=== PATIENT | female | born 1945 | race Caucasian/White ===

== ENCOUNTER 2023-11-20 12:52 | Outpatient (AMB) | payer MEDICARE, SELFPAY ==
--- NOTE | 2023-11-20 12:53 | MHC.OFFVIS ---
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 Nitriles Lab Technician Required: No Allergies Penicillins Allergy (Intermediate, Verified 11/20/23 12:59) Fever Medication List - Last Reconciled 11/20/23 by Ivanna Chavis MD atorvastatin 10 mg PO DAILY doxazosin 4 mg PO DAILY levothyroxine 112 mcg PO DAILY lisinopril 10 mg PO BID mecobalamin (vitamin B12) mcg PO verapamil ER 200 mg PO BEDTIME HPI HPI Comments History of Present Illness Details 78y/o female comes for evaluation of cognitive impairment. She is accompanied by her who helps with history.About 1 year ago her noticed that she was repeating herself often, misplaces things, forgets where her things are, short term memory issues , trouble with time and date , trouble remembering her cousins etc. She has slowly worsening since then. she used to bake a lot but now has issues remembering the recipes.she drives locally and is OK> she was an ex smoker - has COPD now. SHe denies any head injury Her mother was diagnosed with dementia in her 80s. [facility] Medical History (Updated 11/20/23 @ 13:33 by Ivanna Chavis MD) Dementia Arthritis Hypothyroidism Hyperlipidemia COPD (chronic obstructive pulmonary disease) HTN (hypertension) Systolic ejection murmur Surgical History History of carpal tunnel surgery History of hysterectomy History of surgical removal of ganglion cyst History of appendectomy Family History Father No problems noted. Mother No problems noted. Social History Household Members: Spouse Housing: House Alcohol intake: former Patient Tobacco Use Status: Former Tobacco user Years Smoked: 50 years Review of Systems Neuro Reports confusion Psych Reports confusion Physical Exam Vital Signs: Last Vital Signs Pulse 78 01/02/24 12:57 Resp 17 11/20/23 12:57 BP 162/92 H 11/20/23 12:57 Pulse Ox 98 11/20/23 12:57 Oxygen Delivery Method Room Air 11/20/23 12:57 BMI result Body Mass Index 27.4 Const General: cooperative, healthy appearing, comfortable and confusion Nutritional Appearance: average body habitus Orientation/consciousness: confusion Eyes Pupils: Equal, round and reactive pupils present Neuro General: moves all extremities, no focal motor deficits and confusion Cranial nerves: Yes Facial sensation intact/muscles of mastication intact, Yes Equal, round and reactive pupils present, Yes Bilaterally intact EOM present, Yes Nystagmus not present, Yes Normal facial strength present and Yes Midline tongue present Cognition (Neuro): abnormal cognition Gait exam (Neuro): Antalgic gait present Motor exam (neuro): 5/5 motor strength present throughout and Normal motor muscle tone present throughout Deep tendon reflexes (DTR's): Right triceps reflex intensity grade: 1+, Left triceps reflex intensity grade: 1+, Rt Biceps (C5, C6): 1+, Left biceps reflex intensity grade: 1+, Right brachioradialis reflex intensity grade: 1+, Left brachioradialis reflex intensity grade: 1+, Right patellar reflex intensity grade: 2+ and Left patellar reflex intensity grade: 2+ Coordination: [id number] test normal Orientation What is the (year) (season) (date) (day) (month)?: season, date, day and month Where are we (state) (county) (town or city) (hospital) (floor)?: state, county, town or city, hospital/clinic and floor Registration Name of 3 unrelated objects clearly and slowly, then ask patient to repeat all 3 of them. (1st repeat determines score. Make sure they can repeat all three): object 1, object 2 and object 3 Attention & Calculation (CHOOSE ONE) Spell WORLD backwards (DLROW): 2 letters Recall Ask patient to repeat the 3 items from question #3.: object 1 Language Show patient a wristwatch & ask what it is. Repeat for pencil.: watch and pencil Ask the patient to 'take a piece of paper with their right hand' 'fold paper in half' 'place paper on floor': take paper in right hand, fold paper in half and place paper on floor Print the sentence 'CLOSE YOUR EYES' on a piece. If patient actually closes eyes then score.: followed written direction Give patient a blank piece of paper & ask to write a sentence. Score if it contains a noun & verb.: sentence contains subject and verb Score Score: 22 Assessment & Plan Assessment & Plan (1) Dementia: Comment: Alzheimers vs mixed Code(s): - Unspecified dementia, unspecified severity, without behavioral disturbance, psychotic disturbance, mood disturbance, and anxiety Plan I will evaluate her with MRI brain( wants it done at [facility] ) and check her Vit B 12 TSH CBC cMP ESR Homocysteine to r/o reversible causes I will trial her on memantine 10 mg qd and then bid Orders: Orders TSH reflex Free T4 Today - Unspecified dementia, unspecified severity, without behavioral disturbance, psychotic disturbance, mood disturbance, and anxiety Erythrocyte Sedimentation Rate Today - Unspecified dementia, unspecified severity, without behavioral disturbance, psychotic disturbance, mood disturbance, and anxiety Comprehensive Met. Panel Today - Unspecified dementia, unspecified severity, without behavioral disturbance, psychotic disturbance, mood disturbance, and anxiety MR brain wo con w neuroquant Today - Unspecified dementia, unspecified severity, without behavioral disturbance, psychotic disturbance, mood disturbance, and anxiety Vitamin B12 and Folate Today - Unspecified dementia, unspecified severity, without behavioral disturbance, psychotic disturbance, mood disturbance, and anxiety Vitamin D 25-OH (D2 and D3) Today - Unspecified dementia, unspecified severity, without behavioral disturbance, psychotic disturbance, mood disturbance, and anxiety Complete Blood Count Auto Diff Today - Unspecified dementia, unspecified severity, without behavioral disturbance, psychotic disturbance, mood disturbance, and anxiety Homocysteine Today - Unspecified dementia, unspecified severity, without behavioral disturbance, psychotic disturbance, mood disturbance, and anxiety Medications: New memantine 1 tab qd for 7 days and then 1 tab bid 10 mg PO BID 60 tabs 6RF Coding Level of Care Code New Pt Level 4 (19636) Diagnoses Dementia
[2023-11-20 12:57] VITALS: BP 162/92; PULSE 78; RESP 17; O2SAT 98; BMI 27.4
== END 2023-11-20 13:46 | disposition home or self-care (01) ==
PROVIDERS: Absent Provider Psychiatry & Neurology Neurology; PCP Internal Medicine; Visit Provider Psychiatry & Neurology Neurology
DX: F03.90 Unspecified dementia, unspecified severity, without behavioral disturbance, psychotic disturbance, mood disturbance, and anxiety (principal)
CPT/HCPCS: 99204

== ENCOUNTER → 2023-11-20 12:52 | Outpatient (BNVA) | payer MEDICARE, SELFPAY | PROVIDERS: Absent Provider Psychiatry & Neurology Neurology; PCP Internal Medicine; Visit Provider Psychiatry & Neurology Neurology | DX: F03.90 Unspecified dementia, unspecified severity, without behavioral disturbance, psychotic disturbance, mood disturbance, and anxiety (principal) | CPT/HCPCS: 99202 ==

== ENCOUNTER 2024-04-03 15:37 | Outpatient (AMB) | payer MEDICARE, SELFPAY ==
--- NOTE | 2024-04-03 15:39 | MHC.OFFVIS ---
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 Allergies Penicillins Allergy (Intermediate, Verified 04/03/24 15:44) Fever Medication List - Last Reconciled 04/03/24 by Ivanna Chavis MD atorvastatin 10 mg PO DAILY donepezil 1/2 tab qd for 4 weeks then 1 tab qd orally daily; doxazosin 4 mg PO DAILY levothyroxine 112 mcg PO DAILY lisinopril 10 mg PO BID mecobalamin (vitamin B12) mcg PO memantine 10 mg PO BID verapamil ER 200 mg PO BEDTIME HPI Comments Details: 78y/o female comes for follow up of dementia.Her has noticed mild worsening since her last visit. She is accompanied by her who helps with history.About 1 year ago her noticed that she was repeating herself often, misplaces things, forgets where her things are, short term memory issues , trouble with time and date , trouble remembering her cousins etc. She has slowly worsening since then. she used to bake a lot but now has issues remembering the recipes.she drives locally and is OK> she was an ex smoker - has COPD now. SHe denies any head injury Her mother was diagnosed with dementia in her 80s. [facility] Medical History Dementia Arthritis Hypothyroidism Hyperlipidemia COPD (chronic obstructive pulmonary disease) HTN (hypertension) Systolic ejection murmur Surgical History History of carpal tunnel surgery History of hysterectomy History of surgical removal of ganglion cyst History of appendectomy Family History Father No problems noted. Mother No problems noted. Social History Household Members: Spouse Housing: House Alcohol intake: former Patient Tobacco Use Status: Former Tobacco user Years Smoked: 50 years Review of Systems Neuro Reports confusion Psych Reports confusion Physical Exam Vital Signs: Last Vital Signs Pulse 70 04/03/24 15:45 BP 142/80 H 04/03/24 15:45 Pulse Ox 97 04/03/24 15:45 Oxygen Delivery Method Room Air 04/03/24 15:45 BMI result Body Mass Index 23.5 Const General: cooperative, healthy appearing, comfortable and confusion Nutritional Appearance: average body habitus Orientation/consciousness: confusion Eyes Pupils: Equal, round and reactive pupils present Neuro General: moves all extremities, no focal motor deficits and confusion Cranial nerves: Yes Facial sensation intact/muscles of mastication intact, Yes Equal, round and reactive pupils present, Yes Bilaterally intact EOM present, Yes Nystagmus not present, Yes Normal facial strength present and Yes Midline tongue present Cognition (Neuro): abnormal cognition Gait exam (Neuro): Antalgic gait present Motor exam (neuro): 5/5 motor strength present throughout and Normal motor muscle tone present throughout Coordination: [id number] test normal Assessment & Plan Assessment & Plan (1) Dementia: Comment: Alzheimers vs mixed Code(s): F03.90 - Unspecified dementia, unspecified severity, without behavioral disturbance, psychotic disturbance, mood disturbance, and anxiety Category: Medical Plan MRI Brain -age related atrophy and mild white matter changes check her Vit B 12 TSH CBC cMP ESR Homocysteine to r/o reversible causes- was ordered last visit but was not done Continue memantine 10 mg bid start donepezil 5mg qd for 4 weeks then 1 tab qd Medications: New donepezil 1/2 tab qd for 4 weeks then 1 tab qd orally daily; 30 tabs 6RF Coding Level of Care Code Est Pt Level 4 (94599) Diagnoses Dementia F03.90
[2024-04-03 15:45] VITALS: BP 142/80; PULSE 70; O2SAT 97; BMI 23.5
== END 2024-04-03 16:05 | disposition home or self-care (01) ==
PROVIDERS: PCP Internal Medicine; Visit Provider Psychiatry & Neurology Neurology
DX: F03.90 Unspecified dementia, unspecified severity, without behavioral disturbance, psychotic disturbance, mood disturbance, and anxiety (principal)
CPT/HCPCS: 99214

== ENCOUNTER 2024-04-03 16:05 | Outpatient (REF) | payer MEDICARE, SELFPAY ==
[2024-04-03 19:53] LABS: MANUAL DIFF FLAG NO
[2024-04-03 19:57] LABS: Basophils Absolute Auto 0.1 X10*3/uL (0.0-0.2); Eosinophils Absolute Auto 0.1 X10*3/uL (0.0-0.4); Eosinophils Percent Auto 1.1 % (0-4); Hematocrit 32.8 % (37.0-47.0); Hemoglobin 10.7 g/dl (12.0-16.0); Lymphocytes Absolute Auto 1.4 X10*3/uL (1.2-4.9); Mean Corpuscular HGB Conc 32.6 g/dl (31.0-35.0); Mean Corpuscular Hemoglobin 29.6 pg (27.0-33.0); Mean Corpuscular Volume 90.9 fL (80.0-98.0); Mean Platelet Volume 12.7 fL (9.4-12.3); Monocytes Absolute Auto 0.5 X10*3/uL (0.1-1.2); Monocytes Percent Auto 9.6 % (2-11); Neutrophils Absolute Auto 3.2 x10*3/uL (2.0-8.3); Neutrophils Percent Auto 61.3 % (45-73); Platelet Count 329 X10*3/uL (160-400); Red Blood Count 3.61 X10*6/uL (4.20-5.50); Red Cell Distribution Width 12.8 % (11.0-16.0); White Blood Count 5.2 X10*3/uL (4.8-10.8)
[2024-04-03 20:38] LABS: Alanine Aminotransferase 7 U/L (0-31); Albumin Level 3.8 g/dL (3.5-5.0); Alkaline Phosphatase 76 U/L (39-117); Anion Gap 13 (12-20); Aspartate Amino Transferase 15 U/L (5-31); Bilirubin Total 0.4 mg/dL (0.0-1.0); Blood Urea Nitrogen 22 mg/dL (9-16); Calcium 9.4 mg/dL (8.4-10.2); Carbon Dioxide 28 mmol/L (22-29); Chloride 105 mmol/L (96-108); Estimated Glomerular Filt Rate 47; Glucose Random 80 mg/dL (60-115); Potassium 4.6 mmol/L (3.3-5.1); Sodium 141 mmol/L (135-145); Total Protein 7.1 g/dL (6.5-8.0)
[2024-04-03 20:47] LABS: Erythrocyte Sedimentation Rate 33 MM/HR (0-20)
[2024-04-03 20:52] LABS: TSH reflex Free T4 0.07 uIU/mL (0.32-4.0)
[2024-04-03 21:04] LABS: Folate 9.3 ng/mL (> or = 4.0); Vitamin B12 > 2000 pg/mL (200-900)
[2024-04-03 21:26] LABS: Free T4 (Free Thyroxine) 1.74 ng/dL (0.71-1.85)
[2024-04-10 15:52] LABS: Vitamin D 25-OH, D2 <4 ng/mL; Vitamin D 25-OH, D3 29 ng/mL; Vitamin D 25-OH, Total 29 ng/mL (30-100)
== END 2024-04-03 16:06 | disposition home or self-care (01) ==
LOC: HO.HKASLDS 16:05
PROVIDERS: Visit Provider Psychiatry & Neurology Neurology
DX: F03.90 Unspecified dementia, unspecified severity, without behavioral disturbance, psychotic disturbance, mood disturbance, and anxiety (principal); Z79.899 Other long term (current) drug therapy
CPT/HCPCS: 36415; 80053; 82306; 82607; 82746; 84439; 84443; 85025; 85652; 99212

== ENCOUNTER 2024-11-04 11:03 | Outpatient (AMB) | payer MEDICARE, SELFPAY ==
[2024-11-04 11:11] VITALS: BP 120/60; PULSE 69; O2SAT 97; BMI 26.9
--- NOTE | 2024-11-04 11:11 | A.OFFVIS_ITS ---
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 Her has noticed mild worsening since her last visit. She is accompanied by her who helps with history. About 1 year ago her noticed that she was repeating herself often, misplaces things, forgets where her things are, short term memory issues, trouble with time and date, trouble remembering date of births of family members etc. She has slowly declined since She used to bake a lot but now has issues remembering the recipes. She no longer drives. She was an ex smoker, has COPD now. She denies any head injury and falls. Her mother was diagnosed with dementia in her 80s. Moods is labile, diet is good, denies constipation, or hallucinations. Lives in [place], home has stairs, does laundry and children visit and help with chores as needed. Discussed Elderly community services, dinners out once a week, Bingo night and social engagement. [facility] Medical History Dementia Arthritis Hypothyroidism Hyperlipidemia COPD (chronic obstructive pulmonary disease) HTN (hypertension) Systolic ejection murmur Surgical History History of carpal tunnel surgery History of hysterectomy History of surgical removal of ganglion cyst History of appendectomy Family History Father No problems noted. Mother No problems noted. Social History Household Members: Spouse Housing: House Alcohol intake: former Patient Tobacco Use Status: Former Tobacco user Years Smoked: 50 years Review of Systems Const All systems reviewed & are unremarkable except as noted in HPI and below Neuro Reports confusion Psych Reports confusion Physical Exam Vital Signs: Last Vital Signs Pulse 69 11/04/24 11:11 BP 120/60 11/04/24 11:11 Pulse Ox 97 11/04/24 11:11 Oxygen Delivery Method Room Air 11/04/24 11:11 BMI result Body Mass Index 26.9 Const General: cooperative, healthy appearing, comfortable and confusion Nutritional Appearance: average body habitus Orientation/consciousness: confusion Eyes Pupils: Equal, round and reactive pupils present Neuro General: moves all extremities, no focal motor deficits and confusion Cranial nerves: Yes Facial sensation intact/muscles of mastication intact, Yes Equal, round and reactive pupils present, Yes Bilaterally intact EOM present, Yes Nystagmus not present, Yes Normal facial strength present and Yes Midline tongue present Cognition (Neuro): abnormal cognition Gait exam (Neuro): Antalgic gait present Motor exam (neuro): 5/5 motor strength present throughout and Normal motor muscle tone present throughout Coordination: [id number] test normal Orientation Where are we (state) (county) (town or city) (hospital) (floor)?: state, town or city and floor Registration Name of 3 unrelated objects clearly and slowly, then ask patient to repeat all 3 of them. (1st repeat determines score. Make sure they can repeat all three): object 1, object 2 and object 3 Attention & Calculation (CHOOSE ONE) Spell WORLD backwards (DLROW): 4 letters Recall Ask patient to repeat the 3 items from question #3.: object 1 Language Show patient a wristwatch & ask what it is. Repeat for pencil.: watch and pencil Ask the patient to repeat the phrase 'No ifs, ands, or buts' after you.: incorrect Ask the patient to 'take a piece of paper with their right hand' 'fold paper in half' 'place paper on floor': take paper in right hand, fold paper in half and place paper on floor Print the sentence 'CLOSE YOUR EYES' on a piece. If patient actually closes eyes then score.: followed written direction Score Score: 17 Results Reviewed Results Reviewed: MRI 12/2023 microvascular ischemic vessel disease mucosal thickening ehtmoid sinus. MMSE today Assessment & Plan Assessment & Plan (1) Dementia: Comment: Alzheimers vs mixed Code(s): F03.90 - Unspecified dementia, unspecified severity, without behavioral disturbance, psychotic disturbance, mood disturbance, and anxiety Category: Medical Qualifiers: Dementia type: Alzheimer's Alzheimer's disease onset: late onset Dementia severity: moderate Dementia behavioral or psychological symptom: unspecified whether behavioral, psychotic, or mood disturbance or anxiety Qualified Code(s): G30.1 - Alzheimer's disease with late onset; F02.B0 - Dementia in other diseases classified elsewhere, moderate, without behavioral disturbance, psychotic disturbance, mood disturbance, and anxiety (2) Word finding difficulty: Code(s): R47.89 - Other speech disturbances Category: Medical (3) Irritable mood: Code(s): R45.4 - Irritability and anger Category: Medical Plan Alzheimers Dementia Continue to take Donepazil 10mg PO daily at bedtime. Continue to take Memantine 10 mg PO BID daily. Social engagement, puzzles, word searches, and Music therapy is supportive for the brain. Follow up Elderly services for hot meals and Bingo nights with other family and friends. Follow up with our clinic as needed, for any questions and concerns. Medications: Refilled donepezil 1/2 tab qd for 4 weeks then 1 tab qd orally daily; 30 tabs 6RF memantine 1 tab qd for 7 days and then 1 tab bid 10 mg PO BID 60 tabs 6RF Coding Level of Care Code Est Pt Level 4 (33185) Diagnoses Moderate late onset Alzheimer's dementia, unspecified whether behavioral, psychotic, or mood disturbance or anxiety G30.1; F02.B0 Dementia type: Alzheimer's Alzheimer's disease onset: late onset Dementia severity: moderate Dementia behavioral or psychological symptom: unspecified whether behavioral, psychotic, or mood disturbance or anxiety Word finding difficulty R47.89 Irritable mood R45.4 Time Spent (min) 35 Comment Worsening dementia
== END 2024-11-04 12:17 | disposition home or self-care (01) ==
PROVIDERS: PCP Internal Medicine; Visit Provider Physician Assistant Medical
DX: G30.1 Alzheimer's disease with late onset (principal); F02.B0 Dementia in other diseases classified elsewhere, moderate, without behavioral disturbance, psychotic disturbance, mood disturbance, and anxiety; R47.89 Other speech disturbances; R45.4 Irritability and anger
CPT/HCPCS: 99214

== ENCOUNTER → 2024-11-04 11:03 | Outpatient (BNVA) | payer MEDICARE, SELFPAY | PROVIDERS: PCP Internal Medicine; Visit Provider Physician Assistant Medical | DX: G30.1 Alzheimer's disease with late onset (principal); F02.B0 Dementia in other diseases classified elsewhere, moderate, without behavioral disturbance, psychotic disturbance, mood disturbance, and anxiety; R47.89 Other speech disturbances; R45.4 Irritability and anger | CPT/HCPCS: 99212 ==

== ENCOUNTER 2025-05-05 10:57 | Outpatient (AMB) | payer MEDICARE, SELFPAY ==
[2025-05-05 11:04] VITALS: PULSE 72; O2SAT 96; BMI 27.7
--- NOTE | 2025-05-05 11:04 | MHC.OFFVIS ---
Vital Signs 05/05/25 11:04 Height 5 ft 4 in Weight 161 lb 2 oz BMI 27.7 Pulse 72 Pulse Source Pulse Oximeter Pulse Oximetry (%) 96 Oxygen Delivery Method Room Air Intake Visit Reasons: 6 mnts f/u appt Intake Note: Patient presents follow up Dementia. Accompanied by: Spouse Allergies Penicillins Allergy (Intermediate, Verified 05/05/25 11:09) Fever HPI Comments Details: 79y/o female comes for follow up of dementia. She is here with her Sudhakar who helps with history. Primary care is [facility] in [place]. Labs reviewed from 03/2024 Anemia HEIDI? B12 is elevated, vit d levels are low, and TSH low. April 27 2025 She had a fall at 5:30am and hit the door frame, Sudhakar called 911 and she would not go to the hospital even though she hit her head. Her noticed a year ago that she was repeating herself often, misplacing things, forgets where her things are, short term memory issues, trouble with time and date, trouble remembering names and date of births of family members. Difficulties with orientation, recognition, recall of faces, words, confusion, loses track of time easily and she has slowly declined. She can do her ADLs like showering and dressing, but Sudhakar does most of the cooking, laundry and cleaning. He is worried and would like to get life care services, as she does not know how to use the cell phone. She used to bake a lot but now has issues remembering the recipes. She no longer drives. She is a former smoker with COPD. FH + mother diagnosed with late onset dementia in her 80s. Moods is labile, fluctuates from the morning to evening. Her diet is good, denies constipation, sleeps at 8:30 pm on the couch watches tv, wakes up at 11pm and goes to the bathroom then eats a snack, and [place] [facility] [place]. She denies A/V hallucinations. Lives in [place] and her home has stairs, she does not climb stairs. Her children visit once a month to check on them. Discussed Elderly community services in [place], [place] dinners out once a week, staying as active as possible with gardening and waling daily. He is going to apply for meals on wheels and [employer] services for a APARTMENT RENTAL AGENT to get some support 2-3x a week. [facility] Medical History Dementia Arthritis Hypothyroidism Hyperlipidemia COPD (chronic obstructive pulmonary disease) HTN (hypertension) Systolic ejection murmur Surgical History History of carpal tunnel surgery History of hysterectomy History of surgical removal of ganglion cyst History of appendectomy Family History Father No problems noted. Mother No problems noted. Social History Household Members: Spouse Housing: House Alcohol intake: former Patient Tobacco Use Status: Former Tobacco user Years Smoked: 50 years Review of Systems Neuro Reports confusion Psych Reports confusion Physical Exam Vital Signs: Last Vital Signs Pulse 72 05/05/25 11:04 Pulse Ox 96 05/05/25 11:04 Oxygen Delivery Method Room Air 05/05/25 11:04 BMI result Body Mass Index 27.7 Const General: cooperative, healthy appearing, comfortable and confusion Nutritional Appearance: average body habitus Orientation/consciousness: confusion HEENT Face and sinus: Yes face symmetric Eyes Pupils: Equal, round and reactive pupils present Neck Neck: Yes other (limited rom on extension and flexion) Resp Effort & Inspection: normal respiratory effort and able to speak in complete sentences Neuro Other: giggles and has various dialogues and self talk, though denies A/V hallucinations. General: moves all extremities, no focal motor deficits and confusion Cranial nerves: Yes Facial sensation intact/muscles of mastication intact, Yes Equal, round and reactive pupils present, Yes Bilaterally intact EOM present, Yes Nystagmus not present, Yes Normal facial strength present and Yes Midline tongue present Cognition (Neuro): abnormal cognition Gait exam (Neuro): Antalgic gait present Motor exam (neuro): Abnormal motor strength present, Abnormal muscle tone present and Other motor observations present (weak) Coordination: [id number] test normal (gets very confused.) Psych Appearance: well kempt Speech and movement: Psychomotor agitation in speech present Affect: normal affect Insight: Fair insight present (Psych) Judgement: Fair judgement present (Psych) Results Reviewed Results Reviewed: labs 03/2024 Assessment & Plan Assessment & Plan (1) Excessive daytime sleepiness: Comment: naps through out the day. Code(s): G47.19 - Other hypersomnia Category: Medical (2) Fall: Comment: April 27 had a fall called did not go to the hospital and she did hit her head. Code(s): W19.XXXA - Unspecified fall, initial encounter Category: Medical Qualifiers: Encounter type: initial encounter Qualified Code(s): W19.XXXA - Unspecified fall, initial encounter (3) Dementia: Comment: Alzheimers vs mixed Code(s): F03.90 - Unspecified dementia, unspecified severity, without behavioral disturbance, psychotic disturbance, mood disturbance, and anxiety Category: Medical Qualifiers: Alzheimer's disease onset: late onset Dementia behavioral or psychological symptom: unspecified whether behavioral, psychotic, or mood disturbance or anxiety Dementia severity: moderate Dementia type: Alzheimer's Qualified Code(s): G30.1 - Alzheimer's disease with late onset; F02.B0 - Dementia in other diseases classified elsewhere, moderate, without behavioral disturbance, psychotic disturbance, mood disturbance, and anxiety (4) Word finding difficulty: Comment: orientation and difficulty with recognition of faces. Code(s): R47.89 - Other speech disturbances Category: Medical (5) Irritable mood: Code(s): R45.4 - Irritability and anger Category: Medical Plan Alzheimers Dementia Continue to take Donepazil 10mg PO daily at bedtime. Continue to take Memantine 10 mg PO BID daily. Continue with social engagement, puzzles, word searches, music therapy, and gardening are all supportive for the brain. Meals on wheels, and elderly services, along with [facility] for emergencies and falls. Follow up in 3 months for CTscan results and lab results Orders: Orders Complete Blood Count no Diff Today G47.19 - Other hypersomnia Ferritin Today G47.19 - Other hypersomnia Hemoglobin A1c Today G47.19 - Other hypersomnia Methylmalonic Acid Today G47.19 - Other hypersomnia, G47.9 - Sleep disorder, unspecified, R53.83 - Other fatigue Vitamin D 25-OH Total Today G47.19 - Other hypersomnia Vitamin B12 and Folate Today G47.19 - Other hypersomnia CT head/brain wo IV con Today W19.XXXA - Unspecified fall, initial encounter Comprehensive Met. Panel Today G47.19 - Other hypersomnia IRON PROFILE Today G47.19 - Other hypersomnia, G47.9 - Sleep disorder, unspecified, R53.83 - Other fatigue TSH reflex Free T4 Today G47.19 - Other hypersomnia Patient Instructions: Sleep Hygiene provided: set a scheduled bedtime and wake time to help regulate the circadian rhythm and balance the release of pituitary hormones. Sleep in a dark room, temperatures below 68 degrees, and no devices n bed. Limit caffeinated products 6 hours prior to bed, and limit fluids 2-4 hours prior to bed. Gentle night yoga, diffusing essential oils, and playing soft music can be relaxing. Coding Level of Care Code Est Pt Level 4 (75519) Diagnoses Excessive daytime sleepiness G47.19 Fall, initial encounter W19.XXXA Encounter type: initial encounter Moderate late onset Alzheimer's dementia, unspecified whether behavioral, psychotic, or mood disturbance or anxiety G30.1; F02.B0 Alzheimer's disease onset: late onset Dementia behavioral or psychological symptom: unspecified whether behavioral, psychotic, or mood disturbance or anxiety Dementia severity: moderate Dementia type: Alzheimer's Word finding difficulty R47.89 Irritable mood R45.4 Time Spent (min) 30 Comment baseline normative
--- OUTSIDE RECORDS SUMMARY | 2025-05-05 12:28 | XMS_ITS | Patient Health Record ---
Author Organization [facility] Address [address] [place] [address] Care Team Providers [employer] Worker Name Role Phone Jolly ZAZUETA, [place] Primary Care Provider U Julia Chávez Unavailable [phone] Allergies Allergen (clinical drug ingredient) Drug/Non Drug Allergy documented on EMR Reaction Allergy Type Onset Date Status sulfamethoxazole / trimethoprim Bactrim ITCH/REDNESS Drug Allergy Active Reason For Referral No Information Medications Medication SIG (Take, Route, Frequency, Duration) Notes Start Date End Date Status Furosemide 40 MG 1 tablet Orally Once a day for 30 day(s) Active Albuterol as directed Active Doxazosin Mesylate 4 MG 1 tablet Orally Once a day for 30 day(s) Active Levothyroxine Sodium 100 MCG 1 tablet on an empty stomach in the morning Orally Once a day for 30 day(s) Active Verapamil HCl ER 180 MG 1 tablet in the morning with food Orally Once a day for 30 day(s) Active Problems Problem Type SNOMED Code ICD Code Onset Dates Problem Status W/U Status Risk Notes Problem Disorder of joint of ankle and/or foot (825036592) Arthritis - Degenerative (719.97) Active confirmed Problem Hammer toe (641623680) Hammer toe (735.4) Active confirmed Problem Keratoma (31730765) Keratoma (701.1) Active confirmed Problem Metatarsalgia (05992439) Metatarsalgia (726.70) Active confirmed Problem Pain in limb (28472314) Pain in Limb (729.5) Active confirmed Plan Of Treatment Pending Test Test Name Order Date X ray : Foot, right 3V 02/28/2013 Insurance Providers Payer Name Payer Address Payer Phone Subscriber Number Group Number Insured Name Patient Relationship to Insured Coverage Start Date Coverage End Date Medicare [employer] [address] [place] [id number] [id number] Farias Luzma Self - patient is the insured [employer] [facility] [address] [place] [address] [id number] Luzma Farias Self - patient is the insured Medical (General) History Medical History History ICD Code Arthritis asthma high blood pressure thyroid disorder measles mumps chicken pox Surgical History Surgery Date(Month/Year) tonsillectomy 11/1946 appendectomy 11/1954 gall bladder 11/1979 hysterectomy 11/1985 ganglion cyst
== END 2025-05-05 11:54 | disposition home or self-care (01) ==
LOC: HO.HSMS 10:58
PROVIDERS: PCP Internal Medicine; Visit Provider Physician Assistant Medical
DX: G47.19 Other hypersomnia (principal); G30.1 Alzheimer's disease with late onset; F02.B3 Dementia in other diseases classified elsewhere, moderate, with mood disturbance; W19.XXXA Unspecified fall, initial encounter; R47.89 Other speech disturbances; R45.4 Irritability and anger
CPT/HCPCS: 99214

== ENCOUNTER → 2025-05-05 10:57 | Outpatient (BNVA) | payer MEDICARE, SELFPAY | PROVIDERS: PCP Internal Medicine; Visit Provider Physician Assistant Medical | DX: G30.1 Alzheimer's disease with late onset (principal); F02.B0 Dementia in other diseases classified elsewhere, moderate, without behavioral disturbance, psychotic disturbance, mood disturbance, and anxiety; G47.19 Other hypersomnia; R47.89 Other speech disturbances; R45.4 Irritability and anger; Z91.81 History of falling | CPT/HCPCS: 99212 ==